=== PATIENT | female | born 1955 | race Caucasian/White ===

== ENCOUNTER 2016-12-19 05:13 | Observation (INO) | payer BC ==
--- NOTE | ~2016-12-19 | OP ---
Record Of Operation [facility] [address] [place]. [address] NAME: SOL KWONG : 57 STATUS : ADM Gini PAT#: [id number] AGE: 61 ADM/REG DATE : 12/19/16 MR#: [id number] REPORT SERV DATE: 12/19/16 DICTATED BY: CHUY CODY DATE: 12/19/16 REPORT STATUS : Draft TRANSCRIBED BY: MODMarcelo DATE: 12/19/16 DATE OF PROCEDURE: 12/19/2016 PREOPERATIVE DIAGNOSES: Recurrent refractory gastroesophageal reflux disorder, and paraesophageal hiatal hernia, status post remote laparoscopic fundoplication in 2002. POSTOPERATIVE DIAGNOSES: Recurrent refractory gastroesophageal reflux disorder, and paraesophageal hiatal hernia, status post remote laparoscopic fundoplication in 2002. PROCEDURE: Laparoscopic lysis of adhesions, reduction and repair of paraesophageal hiatal hernia, with SIS BioMesh crural repair, and revision of Devika fundoplication. SURGEON: Chuy Cody M.D. RESIDENT SURGEON: Genaro Nina MD. ANESTHESIA: General. ESTIMATED BLOOD LOSS: 50 mL. DETAILS OF PROCEDURE: The patient arrived in the operating suite, she was placed on the table in supine position. General anesthesia obtained via an endotracheal tube. The patient was placed in modified lithotomy. The abdomen was prepped and draped in a sterile manner. Marcaine 0.5% with epinephrine was infiltrated over the supraumbilical left rectus muscle. A small incision was performed. A 10 mm blunt trocar was inserted under laparoscopic visualization. The peritoneal cavity was insufflated with CO2 gas of 15 mmHg pressure. The patient was placed in reverse Trendelenburg. Additional trocar was inserted in the left subxiphoid and left anterior axillary line regions, using blunt technique under laparoscopic guidance, instruments were introduced using blunt and sharp dissection. Omental adhesions in the right upper quadrant and upper midline were taken down to free the omentum from the anterior abdominal wall. There was no bile dissected. This allowed additional trocars to be inserted in the right paramedian region in the anterior axillary line below the costal margin. Instruments were introduced, the lateral segment of the left lobe of the liver was retracted anteriorly with self-retaining retractor. Dissection proceeded along the posterior aspect of the lateral segment of the left lobe using sharp dissection, occasionally the harmonic olive taking down the omentum and stomach from the liver. There appeared to be herniated stomach along the medial edge of the right christa, but surprisingly none on the left anterolateral position. There was good intraabdominal esophageal length initially and apparent dissection proceeded along the medial edge of the right christa, carefully taking down the adhesions both sharply and with the Harmonic olive were appropriate. The posterior vagus nerve was identified. The anterior vagus nerve was not conclusively seen. The prior wrap was carefully taken down dividing the sutures. The wrap was very attenuated. There appeared to be no serosal tear in the stomach throughout the dissection. Once the crura were totally dissected and all herniated stomach reduced and the wrap was taken down, 1/4-inch Terra drain was placed about the lower esophagus for manipulation and retraction. Orogastric tube was positioned in the stomach. Additional Record Of Operation [facility] [address] [place]. [address] NAME: SOL KWONG : 57 STATUS : ADM Gini PAT#: [id number] AGE: 61 ADM/REG DATE : 12/19/16 MR#: [id number] REPORT SERV DATE: 12/19/16 DICTATED BY: CHUY CODY DATE: 12/19/16 REPORT STATUS : Draft TRANSCRIBED BY: JENY DATE: 12/19/16 adhesions in the mediastinum were bluntly dissected to maximize tension-free intraabdominal esophageal length several centimeters. The crura were then approximated posterior to the esophagus with two horizontal mattress of 0 Ethibond sutures over a 4 x 7 cm piece of SIS BioMesh. 360 degree fundic wrap was then accomplished without tension or twisting and secured over 3 cm length with three interrupted 0 Ethibond sutures more cephalad which included a bite of the anterior esophagus. The [place] drain was removed. Orogastric tube was removed. Some blood which oozed from the capsular tear in the liver was suctioned free. There was no active oozing at the completion. Once the Terra drain and orogastric tube were removed, and liver retractor were removed, the peritoneal cavity was desufflated. Trocars were removed under laparoscopic visualization in the peritoneal cavity. It was then compressed to remove all CO2. Skin closure at all sites was performed with subcuticular 4-0 Monocryl. Sterile dressing was applied. The patient awakened, extubated, and taken to PACU. /JENY Chuy Cody M.D. / [id number] CC: Temo Colindres M.D.
[~2016-12-19 05:13] MED LIST: ATV1 PO; BUSPAR; BUSPAR15 M1 PO; EFFEXOR XR150 MG PO; FEMARA PO; HALF81 PO; KAPIDEX60 MG PO; LIPITOR10 PO; NICODERM C14 MG/24 H TOP; PREV15 PO; PRIN5 PO; RECLAST IV; SYN.025B PO; SYN075 PO
[2016-12-20] MEDS ORDERED: PCET PO (08:53)
== END 2016-12-20 11:58 | disposition home or self-care (01) ==
LOC: SDC 05:13 → 5SO 12:02
PROVIDERS: Specialist
PROC: 0BUR4JZ (ICD-10-PCS; 2016-12-19)
PROC: 0BUS4JZ (ICD-10-PCS; principal; 2016-12-19 06:45)
DX: K44.9 Diaphragmatic hernia without obstruction or gangrene (principal); K21.9 Gastro-esophageal reflux disease without esophagitis; F17.210 Nicotine dependence, cigarettes, uncomplicated; E78.00 Pure hypercholesterolemia, unspecified; M19.90 Unspecified osteoarthritis, unspecified site; E03.9 Hypothyroidism, unspecified; F41.9 Anxiety disorder, unspecified; I10 Essential (primary) hypertension; Z98.890 Other specified postprocedural states; Z85.3 Personal history of malignant neoplasm of breast; Z90.49 Acquired absence of other specified parts of digestive tract; Z90.89 Acquired absence of other organs; Z90.710 Acquired absence of both cervix and uterus; Z83.3 Family history of diabetes mellitus; Z82.49 Family history of ischemic heart disease and other diseases of the circulatory system; Z82.3 Family history of stroke; Z79.899 Other long term (current) drug therapy; Z98.1 Arthrodesis status
CPT/HCPCS: 80053; 85025; 93005; 96372; 96374; 96375; A9270-GY; C1781; G0378; J0690; J1170; J2250; J2370; J2405; J2550; J2710; J3010